=== PATIENT | male | born 1945 | race Caucasian/White ===

== ENCOUNTER 2025-03-25 21:23 | Emergency (ER) | payer OTHER ==
[~2025-03-25] VITALS: Ht 172.7 cm; Wt 68.0 kg
[2025-03-25] MEDS ORDERED: ATOR10TA PO (21:32)
[2025-03-25] MEDS: NITROGLYCERIN OINT 1 GM PACKET TP ONE (21:45)
[2025-03-25] MEDS ORDERED: MORPHINE SULFATE 4 MG/1 ML DISP.SYRIN ONE (21:49)
[2025-03-25] MEDS ORDERED: ONDANSETRON 4 MG/2 ML VIAL ONE (21:49)
[2025-03-25] MEDS: ONDANSETRON 4 MG/2 ML VIAL IV ONE (21:52)
[2025-03-25] MEDS: MORPHINE SULFATE 4 MG/1 ML DISP.SYRIN IV ONE (21:52)
[2025-03-25 22:01] LABS: PLATELET COUNT (AUTO) 323 K/uL (152-348); RED BLOOD CELL COUNT(AUTO) 4.53 MIL/uL (4.06-5.63); RED CELL DISTRIBUTION WIDTH 14.3 % (12.1-16.2); WHITE BLOOD COUNT (AUTO) 12.1 K/uL (3.6-10.2)
[2025-03-25] MEDS: IV NORMAL SALINE 1000 ML BAG IV ONE (22:01)
[2025-03-25 22:11] LABS: CREATININE 0.8 mg/dL (0.6-1.3); SODIUM SERUM 143 mmol/L (136-145); UREA NITROGEN, BLOOD 24 mg/dL (7-18)
[2025-03-25 22:17] LABS: ASPARTATE AMINOTRANSFERASE 22 U/L (15-37); TOTAL PROTEIN, SERUM 6.8 g/dL (6.4-8.2)
[2025-03-25] MEDS ORDERED: IV NORMAL SALINE 250 ML IV ONE (23:03)
[2025-03-25] MEDS ORDERED: IOHEXOL 350 100 ML INFUS..BTL ONE (23:04)
[2025-03-25] MEDS ORDERED: SWABABLE VALVE TRANSFER SET EA MC ONE (23:04)
[2025-03-26 01:30] VITALS: BP 123/68
[2025-03-26 02:51] VITALS: BP 118/65; O2SAT 99
== END 2025-03-26 01:50 | disposition home or self-care (01) ==
LOC: EDBD 21:23 → ER 21:23
DX: R07.89 Other chest pain (principal); R06.00 Dyspnea, unspecified
CPT/HCPCS: 99285; 96374; 71275; 71045; 96361; 96375; 80076; 80048; 83880; 85025; 85379; 84484 ×3; 36415 ×2; 93005; J2405; Q9967; J2270; J7040; A4606; A4663